=== PATIENT | female | born 1980 | race Caucasian/White ===

== ENCOUNTER → 2017-03-25 | Outpatient (CLI) | payer BC ==
[~2017-03-25] MED LIST: DULO30CA PO
--- NOTE | 2017-03-25 16:28 | Diagnostic Imaging Report ---
PROCEDURE: MRI left joint lower extremity without contrast. TECHNIQUE: Multiplanar, multisequence non contrast-enhanced MRI of the left lower extremity was accomplished. INDICATION: Fall. FINDINGS: There is a bone marrow edema suggestive of a contusion in the medial femoral condyle. The extensor mechanism is intact. The ACL and the PCL are intact. There is no meniscus tear. The MCL and the lateral collateral ligament complex is intact. There is no significant cartilage thinning or focal cartilage defect identified. No Richards's cyst or significant joint effusion. IMPRESSION: There is bone marrow edema along the medial aspect of the medial femoral condyle suggestive of a contusion without a macroscopic fracture component seen. Dictated by: Dictated on workstation # [id number]
== END ==
LOC: RAD 14:53
PROVIDERS: ATTEND Nurse Practitioner
DX: M89.8X6 Other specified disorders of bone, lower leg (principal)
CPT/HCPCS: 73721

== ENCOUNTER → 2017-03-27 | Outpatient (CLI) | payer BC ==
--- NOTE | 2017-03-28 08:57 | Diagnostic Imaging Report ---
Bilateral screening mammogram 2D views with tomosynthesis. The current study was also evaluated with a Computer Aided Detection (CAD) system. INDICATION: Screening. No current complaints stated on the questionnaire. COMPARISON: None. FINDINGS: The breasts are composed of heterogeneously dense parenchyma which may decrease mammographic sensitivity. No mass, architectural distortion, or suspicious calcifications seen. IMPRESSION: Heterogeneously dense breast parenchyma which may decrease mammographic sensitivity. No focal lesion is identified. ACR BI-RADS Category 2: Benign findings. Result letter will be mailed to the patient. Note: At least 10% of breast cancer is not imaged by mammography. Dictated by: Dictated on workstation # [id number]
== END ==
LOC: RAD 12:54
PROVIDERS: ATTEND Obstetrics & Gynecology
DX: Z12.31 Encounter for screening mammogram for malignant neoplasm of breast (principal)
CPT/HCPCS: 77067

== ENCOUNTER → 2017-10-30 | Outpatient (CLI) | payer BC, OTHER ==
--- NOTE | 2017-10-30 09:17 | Diagnostic Imaging Report ---
PROCEDURE: MRI lumbar spine. TECHNIQUE: Multiplanar, multisequence MRI of the lumbar spine was performed without contrast. INDICATION: Back pain There are no previous studies available for comparison. The T2 sagittal images show the vertebral body heights and alignment to be within normal limits. There is desiccation of the disc at L4-5. Furthermore the axial images reveal that there is a focal disc protrusion to the right at this level. The disc compresses the right ventral aspect of the thecal sac resulting in moderate central stenosis. There may also be encroachment of the exiting right nerve root at this level. There is mild narrowing of the neural foramen on the left as well. There is also desiccation and narrowing of the disc at the L5-S1 level. There is a disc bulge centrally at this level but there is no sign of a spinal stenosis. There is mild narrowing of the neural foramen bilaterally The remainder of the lumbar spine is unremarkable for spinal stenosis or nerve root encroachment. There is no abnormal signal arising from the cord or the vertebral bodies to indicate an acute abnormality. There is no sign of a paraspinal mass. IMPRESSION: 1. There is a focal disc protrusion to the right at L4-5. This does result in moderate central stenosis and may well encroach upon the exiting right nerve root at this level. 2. The remainder of the lumbar spine is unremarkable for a high-grade stenosis or any significant neural foraminal narrowing. 3. There is no sign of an acute bony abnormality or cord lesion. Dictated by: Dictated on workstation # [id number]
== END ==
LOC: RAD 07:41
PROVIDERS: ATTEND Nurse Practitioner Family
DX: M48.061 Spinal stenosis, lumbar region without neurogenic claudication (principal); M51.26 Other intervertebral disc displacement, lumbar region
CPT/HCPCS: 72148

== ENCOUNTER 2019-04-21 11:53 | Outpatient (CLI) | payer BC ==
[~2019-04-21] VITALS: Ht 162.6 cm; Wt 68.7 kg
[2019-04-21] MEDS ORDERED: NORG1TAB14 PO (12:04)
[2019-04-21 12:07] VITALS: BP 105/65
[2019-04-21 12:55] LABS: BASOPHILS % (AUTO) 1 % (0-10); EOSINOPHILS # (AUTO) 0.2 10^3/uL (0.0-0.3); EOSINOPHILS % (AUTO) 4 % (0-10); HEMATOCRIT 39 % (35-52); HEMOGLOBIN 12.5 G/DL (11.5-16.0); LYMPHOCYTES # (AUTO) 1.5 X 10^3 (1.0-4.0); LYMPHOCYTES % (AUTO) 30 % (12-44); MEAN CORPUSCULAR HEMOGLOBIN 31 PG (25-34); MEAN CORPUSCULAR HGB CONC 33 G/DL (32-36); MEAN CORPUSCULAR VOLUME 94 FL (80-99); MEAN PLATELET VOLUME 9.9 FL (7.4-10.4); MONOCYTES # (AUTO) 0.3 X 10^3 (0.0-1.0); MONOCYTES % (AUTO) 6 % (0-12); NEUTROPHILS % (AUTO) 60 % (42-75); PLATELET COUNT 314 10^3/uL (130-400); RED CELL DISTRIBUTION WIDTH 12.3 % (10.0-14.5)
== END 2019-04-21 13:55 ==
LOC: PREOP 11:53
PROVIDERS: ATTEND Obstetrics & Gynecology
DX: Z01.812 Encounter for preprocedural laboratory examination (principal); D64.9 Anemia, unspecified; N81.4 Uterovaginal prolapse, unspecified; N39.3 Stress incontinence (female) (male); R19.00 Intra-abdominal and pelvic swelling, mass and lump, unspecified site
CPT/HCPCS: 36415; 85025; 86850; 86900; 86901; 87081

== ENCOUNTER 2019-04-30 10:30 | Day surgery (SDC) | payer BC ==
[~2019-04-30] VITALS: Ht 162.6 cm; Wt 68.7 kg
[2019-04-30] VITALS (16 sets, daily range): BP systolic 85–136; BP diastolic 47–93
[~2019-04-30 10:30] MED LIST changes: +NORG1TAB14 PO
[2019-04-30] MEDS ORDERED: MIDAZOLAM 2 MG/2 ML (VERSED) VIAL ONE (10:59)
[2019-04-30] MEDS ORDERED: LIDOCAINE PF 2% 5 ML (XYLOCAINE) VIAL ONE (10:59)
[2019-04-30] MEDS ORDERED: SEVOFLURANE (ULTANE) 15 ML INHAL SOLN ONE ×7 (10:59→14:36)
[2019-04-30] MEDS ORDERED: NEOSTIGMINE 3 MG/3 ML VIAL ONE (10:59)
[2019-04-30] MEDS ORDERED: ONDANSETRON 4 MG/2 ML (SDV) Z0FRAN ONE ×3 (10:59→15:08)
[2019-04-30] MEDS ORDERED: DEXAMETHASONE 10 MG/ML (DECADRON) 1 ML VIAL ONE (10:59)
[2019-04-30] MEDS ORDERED: ROCURONIUM 10 MG/ML 5 ML SYRINGE IV ONE (10:59)
[2019-04-30] MEDS ORDERED: fentaNYL INJECTION 100 MCG/2 ML AMP ONE ×5 (10:59→15:08)
[2019-04-30] MEDS ORDERED: GLYCOPYRROLATE 0.2 MG/ML (ROBINUL) 2 ML VIAL ONE (10:59)
[2019-04-30] MEDS ORDERED: proPOfol 200 MG/20 ML (DIPRIVAN) VIAL IV ONE (10:59)
[2019-04-30] MEDS ORDERED: ESTRADIOL VAGINAL CREAM 42.5 GM (ESTRACE) VG ONE (11:10)
[2019-04-30] MEDS ORDERED: BUP/EPI 0.25% 1:200,000 (MARCAINE) 10 ML VIAL IJ ONE (11:10)
[2019-04-30] MEDS: LACTATED RINGERS 1,000 ML IV PRN ×3 (11:15→14:43)
[2019-04-30] MEDS ORDERED: SCOPOLAMINE 1.5 MG (TRANSDERM-SCOP) PATCH ONE (11:16)
[2019-04-30] MEDS ORDERED: ceFAZolin INJECTION 1,000 MG ONE (11:16)
[2019-04-30] MEDS ORDERED: FAMOTIDINE 20MG/2ML IV (PEPCID) ONE (11:16)
[2019-04-30] MEDS ORDERED: SCOPOLAMINE 1.5 MG (TRANSDERM-SCOP) PATCH TOP ONE (11:30)
[2019-04-30] MEDS ORDERED: ceFAZolin INJECTION 1,000 MG in WATER (STERILE) FOR INJECTION 10 ML IV ONE (11:30)
[2019-04-30] MEDS ORDERED: ONDANSETRON 4 MG/2 ML (SDV) Z0FRAN IV ONE (11:30)
[2019-04-30] MEDS ORDERED: FAMOTIDINE 20MG/2ML IV (PEPCID) IV ONE (11:30)
--- NOTE | 2019-04-30 12:42 | Progress Note-Pre Operative ---
Pre-Operative Progress Note H&P Reviewed The H&P was reviewed, patient examined and no changes noted. Date Seen by Provider: Apr 30, 2019 Time Seen by Provider: 12:41 Date H&P Reviewed: Apr 30, 2019 Time H&P Reviewed: 12:41 Pre-Operative Diagnosis: Uterovaginal prolapse/stress urinary incontinence/pelvic mass NICOLETTE TOLENTINO MD Apr 30, 2019 12:42
--- NOTE | 2019-04-30 12:43 | Progress Note-Post Operative ---
Post-Operative Progess Note Surgeon (s)/Mechanical Design Drafter (s) Surgeon NICOLETTE TOLENTINO MD Mechanical Design Drafter: An Meza Pre-Operative Diagnosis Uterovaginal prolapse/stress urinary incontinence/pelvic mass Post-Operative Diagnosis Same with pathology pending Procedure & Operative Findings Date of Procedure 04/30/19 Procedure Performed/Findings TL with bilateral salpingectomy and with anterior posterior vaginal repair with enterocele repair and with Dr. Stanley performing a pubovaginal sling and cystoscopy and urethral dilation Anesthesia Type GETA Estimated Blood Loss Estimated blood loss (mL): 200 mL Specimens/Packing Specimens Removed Uterus and fallopian tubes Packing: Kerlix gauze in the vagina NICOLETTE TOLENTINO MD Apr 30, 2019 12:43
[2019-04-30] MEDS ORDERED: WATER (STERILE) FOR INJ 10 ML BTL INJ ONE (12:45)
[2019-04-30] MEDS ORDERED: ONDANSETRON 4 MG/2 ML (SDV) Z0FRAN IVP PRN ×2 (12:45→15:00)
[2019-04-30] MEDS ORDERED: ESTROGENS CONJ IV 25 MG/5 ML (PREMARIN) VIAL IVP ONE (12:45)
[2019-04-30] MEDS ORDERED: MEPERIDINE (DEMEROL) INJ 100 MG/ML IM PRN (12:45)
[2019-04-30] MEDS ORDERED: KETOROLAC 30 MG/ML VIAL IVP SCH (12:45)
[2019-04-30] MEDS ORDERED: BENZOCAINE/MENTHOL (DERMOPLAST) 56 ML CAN TP PRN (12:45)
[2019-04-30] MEDS ORDERED: PROMETHAZINE INJ 25 MG/ML (PHENERGAN) AMP IM PRN (12:45)
[2019-04-30] MEDS ORDERED: IBUP-1780 PO (12:48)
[2019-04-30] MEDS ORDERED: DOCU100C37 PO (12:48)
[2019-04-30] MEDS ORDERED: OXYC1TAB87 PO (12:48)
--- NOTE | 2019-04-30 12:49 | Discharge Instructions ---
Discharge Instructions Discharge Medications New, Converted or Re-Newed RX: RX on Chart Activity & Diet Discharge Diet: No Restrictions Activity as Tolerated: No Orders-Post D/C & Referrals Follow Up Appt: Return to clinic on Friday, May 03, 2019 at 930 a.m. for staple removal Call to make follow up appt. for patient in 4 weeks. Activity: Rest for 24 hours, than as tolerated. Wound Care: May remove Band-Aid tomorrow. Replace as desired. Keep incisions clean and dry. Wash daily with soap and water. Please call in RX to patient pharmacy. Diet: As tolerated-Clear Liquids only if nauseated. Tomorrow, may shower or tub bathe as desired. No driving for 24 hours, no alcoholic beverages for 24 hours, and nothing per vagina (no tampons, douching, or intercoarse) for 8 weeks. Patient to return to the clinic as soon as possible for: Temperature greater than 101F, Severe Pain, Foul discharge from incision or vagina, Excessive Bleeding (more than a period). NICOLETTE TOLENTINO MD Apr 30, 2019 12:49
--- NOTE | 2019-04-30 13:36 | Progress Note-Pre Operative ---
Pre-Operative Progress Note H&P Reviewed The H&P was reviewed, patient examined and no changes noted. Date Seen by Provider: Apr 30, 2019 Time Seen by Provider: 12:00 Date H&P Reviewed: Apr 30, 2019 Time H&P Reviewed: 12:00 Pre-Operative Diagnosis: INCONTINENCE, DUS CARLOS LAW MD Apr 30, 2019 13:36
--- NOTE | 2019-04-30 14:29 | Progress Note-Post Operative ---
Post-Operative Progess Note Surgeon (s)/Customer Service Consultant (s) Surgeon CARLOS LAW MD Customer Service Consultant: Noam TOLENTINO Pre-Operative Diagnosis INCONTINENCE, DUS Post-Operative Diagnosis SAME Procedure & Operative Findings Date of Procedure 04/30/19 Procedure Performed/Findings U.D, PVS, AND CYSTOSCOPY Anesthesia Type GENERAL Estimated Blood Loss Estimated blood loss (mL): NEGLIGIBLE Specimens/Packing Specimens Removed NONE Packing: Kerlix gauze in the vagina CARLOS LAW MD Apr 30, 2019 14:29
[2019-04-30] MEDS ORDERED: KETOROLAC 30 MG/ML VIAL ONE (14:46)
[2019-04-30] MEDS ORDERED: HYDROmorphone 2 MG/ML VIAL (DILAUDID) ONE (14:46)
[2019-04-30] MEDS ORDERED: fentaNYL INJECTION 100 MCG/2 ML AMP IVP ONE (15:00)
[2019-04-30] MEDS ORDERED: MEPERIDINE (DEMEROL) INJ 50 MG/ML IVP ONE (15:00)
[2019-04-30] MEDS ORDERED: MEPERIDINE (DEMEROL) INJ 50 MG/ML ONE ×2 (15:08→16:07)
--- NOTE | 2019-04-30 15:55 | NUR ---
CYRIL BOWEN TRANSFERRED TO ROOM 306 VIA BED ACC BY ALISON COHEN AFTER A TOTAL LAPAROSCOPIC HYSTERECTOMY WITH BILATERAL SALPINGECTOMY, ANTERIOR AND POSTERIOR VAGINAL REPAIR WITH ENTEROCELE REPAIR BY DR. TOLENTINO AND PUBOVAGINAL SLING, URETHRAL DILITAION AND CYSTOSCOPY BY DR. LAW TODAY. CYRIL BOWEN introduced to surroundings, call light, bed controls, phone, TV, temperature control, lights, meal times, smoking policy, visitor policy, side rail policy, bathrooms and showers. Patient Rights given to patient in the handbook
--- NOTE | 2019-04-30 16:00 | NUR ---
ASSESSMENT PERFORMED. PT OUT OF CONTROL AND THRASHING HEAD BACK AND FORTH. PT'S MOTHER AT BEDSIDE. IV PLACED ON PUMP WITH NEW TUBING. CONTINUOUS SPO2 MONITORING AND FREQUENT VS. PATIENT RATES PAIN R/T PACKING AND CATHETER 05/27. STATES WANTING "IT OUT." SPO2 100% ON ROOM AIR. ABD SOFT. LAP SITES X3 D/I. ABD SOFT. VAGINAL PACKING IN PLACE WITH SCANT BLEEDING ON TAIL. RIVERS PATENT TO DD WITH LT CAROL URINE. THIGH-HI SCDS ON BILATERALLY. PT HYPERVENTILATING. ENCOURAGED TO TRY TO BREATHE MORE SLOWLY.
[2019-04-30] MEDS ORDERED: PROMETHAZINE INJ 25 MG/ML (PHENERGAN) AMP ONE (16:07)
[2019-04-30] MEDS ORDERED: MEPERIDINE (DEMEROL) INJ 100 MG/ML ONE (16:07)
--- NOTE | 2019-04-30 16:19 | NUR ---
DEMEROL 100 MG/PHENERGAN 25 MG IM IN RIGHT VG SITE. SITE CLEAR FOR C/O PAIN/PRESSURE FROM PACKING AND RIVERS. STATES SHE FEELS LIKE SHE NEEDS TO PEE. RIVERS DRAINING AND THIS RN MANIPULATING TUBING TO ENSURE DRAINAGE. PT'S MOTHER TEARY EYED AND ASKING HOW LONG BEFORE THE MEDICATION WILL HELP. INFORMED MAYBE 15-20 MINUTES BUT CAN VARY. PT'S MOTHER TIMING MEDICATION.
--- NOTE | 2019-04-30 16:51 | NUR ---
ZOFRAN 12 MG IVP FOR C/O NAUSEA. NO EMESIS. PT HAD BEEN MORE CALM AND BECOMING MORE DROWSY. VSS. SPO2 100%.
--- NOTE | 2019-04-30 17:20 | NUR ---
O2 STARTED AT 2L/M/NC R/T DECREASE IN SPO2. PT SLEEPING SOUNDLY. MOTHER REMAINS AT THE BEDSIDE. RT NOTIFED OF NEED FOR I.S. BUT TO WAIT UNTIL PT AWAKENS LATER BECAUSE OF PAIN CONTROL ISSUES.
--- NOTE | 2019-04-30 17:30 | NUR ---
SPO2 REMAINS AT 100% AND PT STILL SLEEPING. VSS. MOM AT BEDSIDE.
--- NOTE | 2019-04-30 18:30 | NUR ---
PT SLEEPING BUT STARTING TO AROUSE WITH A VISITOR AT BEDSIDE. VSS.
--- NOTE | 2019-04-30 18:50 | NUR ---
PT ATTEMPTING TO EAT NOW. RATES PAIN 3/10. WILL CONTINUE O2 AND LET NEXT SHIFT WEAN. ABD. SOFT. 3 OP SITE DRSG D/I. SCANT VAGINAL BLEEDING AND PACKING TAIL NOTED. HAS SCDS OFF BUT WILL ALLOW THEM OFF UNTIL PT FINISHED WITH MEAL.
--- NOTE | 2019-04-30 19:45 | NUR ---
assessment completed. family at bedside. luo draining, clear yellow urine noted in bag. pt rates pain 3/10. pt denies any needs. will continue to monitor.
--- NOTE | 2019-04-30 21:00 | NUR ---
Pt c/o dry mouth. would like to removed scopolamine patch. scopolamine patch removed.
[2019-04-30] MEDS: KETOROLAC 30 MG/ML VIAL IVP SCH (21:08)
[2019-04-30] MEDS: oxyCODONE/APAP 5/325MG (PERCOCET 5) TABLET PO PRN (21:30)
[2019-04-30] MEDS: D5 LR IV SOLUTION 1,000 ML IV SCH (21:36)
--- NOTE | 2019-05-01 00:50 | OPERATIVE REPORT ---
DATE OF SERVICE: 04/30/2019 PREOPERATIVE DIAGNOSIS: On my part, urinary incontinence and distal urethral stenosis. POSTOPERATIVE DIAGNOSIS: On my part, urinary incontinence and distal urethral stenosis. OPERATION PERFORMED: Urethral dilatation, pubovaginal sling and cystoscopy. SURGEON: Carlos Law MD. SHAREHOLDER: Jose Patino MD ANESTHESIA: General. COMPLICATIONS: None. DESCRIPTION OF PROCEDURE: After Dr. Patino performed the first part of the surgery that he will dictate, I inserted a Vail catheter in the bladder. I went ahead and passed the pubovaginal sling device Solyx on both sides using the described technique. The sling was sitting nicely under the mid urethra with no tension, no twist and passage of a hemostat easily between it and the underlying tissue. I removed the Vail catheter. I performed urethral dilatation with #30 British easily and inserted the cystoscope to confirm the intact orifices, urethra, bladder with no foreign body and presence of the sling under the mid urethra. I left the bladder half full to perform a manual Valsalva maneuver after removing the cystoscope and it was negative. I reinserted the Vail catheter draining clear fluid. Estimated blood loss for my part is negligible. Dr. Patino performed the rest of his surgery that he will dictate. Job ID: [id number] DocumentID: [id number] Dictated Date: 04/30/2019 14:31:25 Science Intern Date: 05/01/2019 00:49:21 Dictated By: CARLOS LAW MD
--- NOTE | 2019-05-01 01:39 | OPERATIVE REPORT ---
DATE OF SERVICE: 04/30/2019 PREOPERATIVE DIAGNOSES: Uterovaginal prolapse, stress urinary incontinence and pelvic mass. POSTOPERATIVE DIAGNOSES: Uterovaginal prolapse, stress urinary incontinence and pelvic mass. OPERATIVE PROCEDURE: Total laparoscopic hysterectomy with bilateral salpingectomies as well as anterior and posterior vaginal repair with enterocele repair and with Dr. Garcia performing a pubovaginal sling and cystoscopy and urethral dilation. OPERATIVE DESCRIPTION: With the patient in the supine position under satisfactory general anesthesia, she was repositioned in dorsal lithotomy position in the [facility] and prepped and draped in the usual fashion for abdominal and vaginal surgery using mechanical assistance. Weighted speculum was placed in the posterior fornix of vagina. Cervix was exposed and grasped anteriorly with single tooth tenaculum. Uterus was sounded to 11 cm with uterine sound. The cervix was then serially dilated with Jermaine dilators to accommodate a Ana Rosa II manipulator, which was placed using a 6 mm x 8 cm uterine probe and a 30 mm colpotomy ring. Sutures of #1 Vicryl were placed at 3 and 9 o'clock position of the cervix to affix the uterus to the manipulator. Vail catheter was placed in the urinary bladder and the patient was brought in low dorsal lithotomy position. An 8 mm incision was made 5 cm superior to the umbilicus. Veress needle was placed through that incision into the abdominal cavity and correct placement was confirmed with the water drop test. The abdomen was insufflated with 2.4 liters of carbon dioxide and the Veress needle was removed and an 8 mm laparoscopic port was placed. Laparoscope was introduced and additional ports of 8 mm were placed 9 cm lateral to the umbilicus about 2 cm above the level of umbilicus. All three port sites were infiltrated with 0.25% Marcaine with epinephrine prior to incision and port placement. The patient was placed in Trendelenburg allowing the bowel to spill out of the pelvis and then the da Mouna column was advanced on the patient and docked. Operative instruments were placed in the right and left lateral ports and I retired to the console for the hysterectomy. At the da Mouna console using a vessel sealer on the right and a bipolar fenestrated grasper on the left, the pelvis was first examined. Both ovaries were normal in appearance as were the fallopian tubes. There was evidence of remote tubal sterilization. Laparoscope was rotated. The appendix was identified. It was a normal vermiform appendix. Laparoscope was brought back to the pelvis. The uterus was somewhat mottled in appearance and was bulky, but there was no overt concerning pathology. The intended procedure was initiated after first identifying both ureters and seemed to peristalse. They were well away from the IP ligament. The right fallopian tube was grasped and elevated. The was clamped, cauterized and divided. This was continued stepwise across the mesosalpinx. There was an area of endometriosis implants on the tissue that was removed with the fallopian tube. Once the mesosalpinx had been divided over to the uteroovarian pedicle then the uteroovarian pedicle itself was clamped, cauterized and divided as was the round ligament, the broad ligament and finally down onto the cardinal ligament. Same procedure was performed on the left, allowing for removal of both fallopian tubes eventually with the uterus. The anterior lower uterine segment peritoneum was exposed and then using a monopolar shear on the right, the peritoneum was divided. The bladder was carefully dissected down off the lower uterine segment and then colpotomy incision was started at 12 o'clock position onto the colpotomy ring. That incision was continued circumferentially until the entire colpotomy ring was exposed. The uterus was now extracted through the vagina with the tubes still attached. The vaginal cuff was closed using 2 V-Loc barbed sutures starting from the first on the left angle and continued to the midportion of the cuff and then reperitonealizing back to the left and then suspending the ovary to the pedicle of the round ligament on the left. The same process was then repeated on the right taking care on both sides to include the pedicles of the uterine arteries to ensure hemostasis. With hemostasis complete and the pelvis closed and the vaginal cuff closed, the procedure was terminated. The operative instruments were removed under direct vision as were the ports. The patient's abdomen was evacuated of the insufflating gas in the process of removing the ports. The skin incisions were stapled and the patient was brought into low dorsal lithotomy position and then repositioned into the dorsal lithotomy position for the anterior and posterior vaginal repairs and other procedures. Weighted speculum was placed in the posterior fornix of the vagina. The anterior vaginal wall was grasped with two Ovidio clamps. Vaginal wall was opened in the midline with Metzenbaum scissors. That opening was continued to approximately 1.5 cm from the urethral meatus and then all the way to the apex of the vagina. The bladder was carefully dissected off the muscularis of the vagina and then the bladder wall and endopelvic fascia were plicated with 2-0 Vicryl sutures, elevating the bladder and lengthening the urethra. At this point, Dr. Garcia assumed care of the patient for placement of a pubovaginal sling, cystoscopy and for urethral dilation, all of those he will dictate. I remained to assist. On completion of Dr. Garcia's portion of the procedure, I resumed care of the patient. He had left the Vail catheter to dependent drainage. At this point, it was draining clear yellow urine. Redundant anterior vaginal muscularis mucosa was removed sharply. Vagina was closed with a running locked suture of 3-0 Vicryl Rapide. Good support was evident. Good hemostasis was achieved. The posterior repair was then by placing Ovidio clamps on the perineum and hymenal ring at 5 and 7 o'clock position and inverted triangle of skin was removed from the perineal body and upright triangle was removed from the posterior vaginal floor. The rectovaginal space was then sharply and dissected bluntly to the apex of the vagina where it was explored for an enterocele; that being a small one, it was plicated with two sutures of 2-0 Vicryl in a pursestring fashion and then the rectovaginal space was obliterated with additional sutures of 2-0 Vicryl and the perineal body was restored with 2-0 Vicryl sutures as well. Redundant posterior vaginal muscularis mucosa was resected and then the vaginal wall was closed with a running locked suture also of 3-0 Vicryl Rapide; that closure was continued past the hymenal ring and back down on the perineal body, then back up subcutaneous to be tied inside the hymenal ring. Good support was evident. Good hemostasis was achieved. The Vail catheter was left to dependent drainage. The vagina was filled with Estrace vaginal cream and a pack of Kerlix gauze was placed. Digital rectal exam confirmed no stricture or stenosis of the rectum and no sutures into or through the rectal mucosa. Sponge and needle counts were correct. Estimated blood loss was around 200 mL. The patient tolerated the procedure well and was now uneventfully awakened from general anesthesia and transferred to the recovery room in stable condition. Job ID: [id number] DocumentID: [id number] Dictated Date: 04/30/2019 14:53:07 Webbing Inspector Date: 05/01/2019 01:39:01 Dictated By: NICOLETTE TOLENTINO MD
[2019-05-01] MEDS: KETOROLAC 30 MG/ML VIAL IVP SCH ×2 (02:38→09:00)
[2019-05-01] MEDS: oxyCODONE/APAP 5/325MG (PERCOCET 5) TABLET PO PRN ×5 (02:39→21:21)
[2019-05-01 04:00] VITALS: BP 106/71
--- NOTE | 2019-05-01 05:49 | NUR ---
vag packing removed, luo dc'd, iv converted to sl. pt tolerated well.
--- NOTE | 2019-05-01 07:51 | Progress Note ---
Standard Progress Note Progress Notes/Assess & Plan Date Seen by a Provider: May 01, 2019 Time Seen by a Provider: 07:49 Progress/Assessment & Plan This patient is without complaint. She is ambulating, tolerating oral intake well and has good pain control. She denies chest pain, denies shortness of breath, denies nausea vomiting. She does report a mild headache that she relates to hunger. She has not voided as of yet. Vital Signs 04/30/19 05/01/19 18:30 04:00 Temp 37.3 Pulse 78 Resp 18 B/P (MAP) 106/71 Pulse Ox 100 O2 Delivery Room Air O2 Flow Rate 2.00 Vital signs are stable. Patient is afebrile. The abdomen is benign. Extremities show no clubbing cyanosis. There is no Homans sign. Assessment and plan postoperative day number 1 doing well. Plan will be for observation until she demonstrates adequate bladder function and then allowed discharge home. If she may manifest urinary retention then we will likely continue observation overnight. Final Diagnosis Uterovaginal prolapse and stress urinary incontinence NICOLETTE TOLENTINO MD May 01, 2019 07:51
--- NOTE | 2019-05-01 08:00 | NUR ---
Pt up to bathroom without difficulty. Voided 150 cc of light blood tinged urine. Hesitancy with voiding. Pt stated she felt like she emptied bladder. Bladder non-distended. No c/o of pain.
--- NOTE | 2019-05-01 08:00 | NUR ---
Dr Patino here to see pt. Pt voided 150cc.
[2019-05-01 08:15] VITALS: BP 121/75
--- NOTE | 2019-05-01 09:15 | NUR ---
Pt up to bathroom by self without difficulty. Voided 100cc of clear urine with hesitancy. Pt stated she did not feel emptied. Post void bladder scan 379cc. Pt refused straight cath at this time.
[2019-05-01] MEDS: DOCUSATE SODIUM 100 MG (COLACE) CAP PO SCH ×2 (09:20→21:21)
[2019-05-01] MEDS: IBUPROFEN 800 MG (MOTRIN) TAB PO SCH ×2 (09:21→15:21)
[2019-05-01] MEDS ORDERED: CATHETER FLUSH 10 ML SYR IVF PRN (10:00)
--- NOTE | 2019-05-01 10:00 | NUR ---
Pt up to bathroom, feeling pressure unable to void. Bladder scan 450cc. 1015 Straight cath 650cc of clear urine. Pressure relieved. Bladder non-distended.
--- NOTE | 2019-05-01 10:30 | NUR ---
Dr Vogel here to see pt. This reported voids Continue to monitor. 150cc & 100cc,post void bladder scan results 450cc, straight cath 650cc. Addendum: 05/01/19 at 1142 by BEREKET CANTU RN Dr Vogel here to see pt. This RN reported voids, 150 cc & 100 cc, post void bladder scan results, straight cath 650 cc of urine returned. Continue to monitor.
--- NOTE | 2019-05-01 10:55 | Progress Note - Urology ---
Progress Note-Urology Progress Notes/Assess & Plan Progress/Assessment & Plan VOIDED BUT PVR 650CC. CONTINENT. OBSERVE TODAY Final Diagnosis INCONTINENCE CARLOS LAW MD May 01, 2019 10:55
[2019-05-01 11:58] VITALS: BP 90/48
--- NOTE | 2019-05-01 12:30 | NUR ---
Pt feeling better. Ambulated in funes and up in kevin after "4 laps" as stated via pt.
--- NOTE | 2019-05-01 13:00 | NUR ---
Pt up to bathroom voided 200cc. Bladder scan post void residual 54cc. Scan via Amaris RMprincipal clerk. Pt comfort.
--- NOTE | 2019-05-01 14:45 | NUR ---
Pt up to bathroom. Voided 100cc. Bladder scan post void residual 244cc. Pt denies discomfort and would like to be discharged.
--- NOTE | 2019-05-01 15:05 | NUR ---
Notified Dr Garcia of pt voiding, bladder scan post void residuals 54cc and 244cc of urine. Pt states she feels better and would like to go home. "O" to discharge pt with instructions.
--- NOTE | 2019-05-01 16:15 | NUR ---
Pt turned field talent qualification specialist light and states very uncomfortable and unable to void. 15FR straight cath with aseptic tech. pt tolerated well. 500cc of clear yellow urine out. Pt states there was some relief. Bladder non distended via palpation. Pt also c/o of gas pain pt has not passed gas rectally since this am. Has been able to burp. Abdomen tender to palpation and firm. Pt has bowels sounds in all quads.
--- NOTE | 2019-05-01 16:30 | NUR ---
Notified Dr Garcia of pt's c/o unable to void,gas pain, and straight cath 500cc. "o" Simethicone and will keep pt overnight.
--- NOTE | 2019-05-01 16:35 | NUR ---
Pt ambulating in hallway.
[2019-05-01] MEDS: SIMETHICONE 80 MG (MYLICON) CHEW PO PRN (17:00)
--- NOTE | 2019-05-01 17:00 | NUR ---
Pt continues to c/o of gas pain. Pt refused percocet at this time. Pt states she feels constipated. Pt had regular BM yesterday morning. No nausea. no vomiting.
[2019-05-01 17:10] VITALS: BP 106/65
--- NOTE | 2019-05-01 17:15 | NUR ---
Notified Dr Patino of pt c/o, gas pain,unable to void, refused second percocet tab and that I have notified Dr Garcia. "O" LR 150MLS/HR, 1mg stadol IV once, call him with further c/o pain or concerns.
[2019-05-01] MEDS ORDERED: BUTORPHANOL INJ 2 MG/ML (STADOL) VIAL IV ONE (17:30)
[2019-05-01] MEDS ORDERED: BUTORPHANOL INJ 2 MG/ML (STADOL) VIAL ONE (17:37)
[2019-05-01] MEDS ORDERED: LACTATED RINGERS 1,000 ML IV ONE (17:38)
[2019-05-01] MEDS: LACTATED RINGERS 1,000 ML IV SCH (17:59)
--- NOTE | 2019-05-01 17:59 | NUR ---
SL in rt forearm flushed with NS. Flushes without difficulty. Primary pump tubing and extension connected. LR infusing @ 150MLS/HR with difficulty. See MAR
[2019-05-01] MEDS: D5 LR IV SOLUTION 1,000 ML IV SCH ×2 (18:04→18:05)
--- NOTE | 2019-05-01 19:03 | NUR ---
Dermaplast spray to rectum for c/o pressure. Pt resting on lt side. Denies urge to void. Pt stated stadol relieved her pain.
--- NOTE | 2019-05-01 19:52 | NUR ---
pt put propellant charge zone assembler light, states she has the urge to void. pt placed on toilet. ice pack given to place on perineum to assist with voiding. Pt still unable to void. Pt would like to try and take a shower to see if that will help. iv converted to sl and secured. pt assisted to shower. family at side.
--- NOTE | 2019-05-01 20:08 | NUR ---
notified of pt's pain and unable to void. order to continue straight cath received.
[2019-05-01 20:30] VITALS: BP 112/69
--- NOTE | 2019-05-01 20:30 | NUR ---
pt c/o abdominal pain that starts under ribs and radiates to her rectum. c/o urge to void. nausea on and off. pt eating sandwich. no vomiting noted at this time.
--- NOTE | 2019-05-01 20:40 | NUR ---
pt assisted back to bathroom. unable to void. pt assisted back to bed. pt crying in pain. straight cath performed. 500cc of clear yellow urine obtained. pericare completed.
--- NOTE | 2019-05-01 20:55 | NUR ---
mother very upset about patient's well being. notified of pt's complaint and pain. updated on patient's status. new orders received.
[2019-05-01] MEDS ORDERED: ALPRAZolam 1 MG (XANAX) TAB ONE (21:09)
[2019-05-01] MEDS ORDERED: ALPRAZolam 1 MG (XANAX) TAB PO ONE (21:15)
[2019-05-01 21:57] LABS: BASOPHILS % (AUTO) 0 % (0-10); EOSINOPHILS % (AUTO) 0 % (0-10); HEMATOCRIT 32 % (35-52); HEMOGLOBIN 10.4 G/DL (11.5-16.0); LYMPHOCYTES # (AUTO) 0.8 X 10^3 (1.0-4.0); LYMPHOCYTES % (AUTO) 6 % (12-44); MEAN CORPUSCULAR HEMOGLOBIN 32 PG (25-34); MEAN CORPUSCULAR HGB CONC 33 G/DL (32-36); MEAN CORPUSCULAR VOLUME 96 FL (80-99); MEAN PLATELET VOLUME 10.1 FL (7.4-10.4); MONOCYTES # (AUTO) 0.5 X 10^3 (0.0-1.0); MONOCYTES % (AUTO) 4 % (0-12); NEUTROPHILS # (AUTO) 11.9 X 10^3 (1.8-7.8); NEUTROPHILS % (AUTO) 90 % (42-75); PLATELET COUNT 209 10^3/uL (130-400); RED CELL DISTRIBUTION WIDTH 11.9 % (10.0-14.5); WHITE BLOOD COUNT 13.2 10^3/uL (4.3-11.0)
--- NOTE | 2019-05-01 22:08 | NUR ---
straight cath performed. 200 cc of clear yellow urine obtained and sent to lab. pt states pain is the same.
[2019-05-01 22:11] LABS: ALANINE AMINOTRANSFERASE 8 U/L (0-55); ALBUMIN 3.2 GM/DL (3.2-4.5); ALKALINE PHOSPHATASE 45 U/L (40-136); BAND NEUTROPHILS 5 %; BASOPHILS % (MANUAL) 0 %; BILIRUBIN,TOTAL 0.8 MG/DL (0.1-1.0); BUN/CREATININE RATIO 9; CALCIUM 7.9 MG/DL (8.5-10.1); CARBON DIOXIDE 23 MMOL/L (21-32); CHLORIDE 108 MMOL/L (98-107); CREATININE SERUM 0.69 MG/DL (0.60-1.30); EOSINOPHILS % (MANUAL) 0 %; GFR ESTIMATED > 60; GLUCOSE 124 MG/DL (70-105); LYMPHOCYTES % (MANUAL) 2 %; MONOCYTES % (MANUAL) 5 %; NEUTROPHILS % (MANUAL) 88 %; POTASSIUM 3.8 MMOL/L (3.6-5.0); RBC MORPH NORMAL; SODIUM 138 MMOL/L (135-145); TOTAL PROTEIN 5.6 GM/DL (6.4-8.2)
[2019-05-01 22:13] LABS: BILIRUBIN,URINE NEGATIVE (NEGATIVE); CLARITY,URINE CLEAR; COLOR,URINE YELLOW; GLUCOSE, URINE (UA) NEGATIVE (NEGATIVE); KETONES,URINE NEGATIVE (NEGATIVE); LEUKOCYTE ESTERASE ,URINE 1+ (NEGATIVE); NITRITE,URINE NEGATIVE (NEGATIVE); PH,URINE 8 (5-9); PROTEIN,URINE NEGATIVE (NEGATIVE); UROBILINOGEN,URINE NORMAL (NORMAL)
--- NOTE | 2019-05-01 22:15 | NUR ---
called with update. new orders received.
[2019-05-01 22:19] LABS: BACTERIA,URINE NEGATIVE /HPF; SQUAMOUS EPITHELIAL CELL,UR RARE /HPF; WBC,URINE 0-2 /HPF
--- NOTE | 2019-05-01 22:36 | NUR ---
pt taken by aquiles'kannan to c/t
[2019-05-01] MEDS ORDERED: IOHEXOL 350 MG/ML 100 ML (OMNIPAQUE 350) VIAL IV ONE (23:00)
[2019-05-01] MEDS ORDERED: HOLD METFORMIN - RECEIVED CONTRAST 20 ML VIAL IV SCH (23:00)
[2019-05-01] MEDS ORDERED: NS 100 ML (IVPB) BAG IV ONE (23:00)
--- NOTE | 2019-05-01 23:00 | NUR ---
pt returned from ct
--- NOTE | 2019-05-01 23:10 | NUR ---
pt up to the bathroom. positive void 150cc. pt reports pain is better 4/10
--- NOTE | 2019-05-01 23:15 | NUR ---
ice pack placed on perineum per patient's request.
--- NOTE | 2019-05-01 23:38 | NUR ---
CT results called to . no new orders at this time.
--- NOTE | 2019-05-01 23:56 | NUR ---
plan of care discuss with mother/patient. no questions at this time. will continue to monitor.
[2019-05-02 00:06] VITALS: BP 104/66
--- NOTE | 2019-05-02 02:12 | NUR ---
pt resting in bed with eyes closed. mother at bedside. pt denies any needs at this time.
[2019-05-02] MEDS: LACTATED RINGERS 1,000 ML IV SCH (02:30)
[2019-05-02] MEDS: IBUPROFEN 800 MG (MOTRIN) TAB PO SCH ×2 (03:12→08:37)
[2019-05-02] MEDS: oxyCODONE/APAP 5/325MG (PERCOCET 5) TABLET PO PRN (03:13)
[2019-05-02 03:15] VITALS: BP 87/51
--- NOTE | 2019-05-02 05:20 | NUR ---
pt assisted to the bathroom. positive void 250cc of clear yellow urine. small amount of urine noted in toilet. pt states she feels "empty of urine" denies any pain at this time. will continue to monitor.
--- NOTE | 2019-05-02 05:59 | NUR ---
called to unit. Update given on patient. New orders received.
--- NOTE | 2019-05-02 07:49 | Progress Note ---
Standard Progress Note Progress Notes/Assess & Plan Date Seen by a Provider: May 02, 2019 Time Seen by a Provider: 07:47 Progress/Assessment & Plan This patient is without complaint. She is ambulating, tolerating oral intake well and has good pain control. She denies chest pain, denies shortness of breath, denies nausea vomiting. She does report a mild headache that she relates to hunger. She has not voided as of yet. Vital Signs 04/30/19 05/01/19 18:30 04:00 Temp 37.3 Pulse 78 Resp 18 B/P (MAP) 106/71 Pulse Ox 100 O2 Delivery Room Air O2 Flow Rate 2.00 Vital signs are stable. Patient is afebrile. The abdomen is benign. Extremities show no clubbing cyanosis. There is no Homans sign. Assessment and plan postoperative day number 1 doing well. Plan will be for observation until she demonstrates adequate bladder function and then allowed discharge home. If she may manifest urinary retention then we will likely continue observation overnight. May 02, 2019 Patient is now without complaint. She had an episode yesterday where she had increasing abdominal and pelvic pain. She initially was unable to void but then began to void adequately. Then had another episode where she has urinary retention. With the severe pain in the urinary retention a CT was performed with no specific abnormal findings. There was some fluid in the pelvis but that would not be unusual after her surgery. White blood cell count with minimally elevated. After the CT was performed in patient's symptoms essentially res olved. She is now eating and drinking she is ambulating and voiding and has good pain control and is requesting discharge home. Vital Signs Date Time Temp Pulse Resp B/P (MAP) Pulse Ox O2 Delivery O2 Flow Rate FiO2 05/02/19 06:25 Nasal Cannula 2.00 05/02/19 03:15 37.3 83 18 87/51 98 Room Air 05/02/19 00:06 37.8 90 18 104/66 98 Room Air 05/01/19 22:09 Room Air 05/01/19 20:30 37.5 91 18 112/69 100 Room Air 05/01/19 17:10 37.7 88 18 106/65 100 Room Air 05/01/19 11:58 37.7 78 16 90/48 97 Room Air 05/01/19 11:07 Room Air 05/01/19 08:15 37.7 74 18 121/75 100 Room Air I & O 05/02/19 07:00 Intake Total 1500 ml Output Total 2600 ml Balance -1100 ml Vital signs are stable. Patient is afebrile. The abdomen is benign. The surgical incision dressings are clean and dry. Bowel sounds are present in all 4 quadrants. Extremities show no clubbing or cyanosis. There is no Homans sign. Assessment and plan postoperative day number 2 doing well. She is voiding well now her episode of severe pain has resolved she is requesting discharge home and plan is for discharge home with follow-up in clinic Final Diagnosis Uterovaginal prolapse and stress urinary incontinence NICOLETTE TOLENTINO MD May 02, 2019 07:49
--- NOTE | 2019-05-02 07:52 | Discharge Instructions ---
Discharge Instructions Orders-Post D/C & Referrals Follow Up Appt: Return to clinic on Friday, May 07, 2019 at 930 a.m. for incision check Call to make follow up appt. for patient in 4 weeks. Activity: Rest for 24 hours, than as tolerated. Wound Care: Please remove mansi and apply Steri-Strips prior to discharge May remove Band-Aid tomorrow. Replace as desired. Keep incisions clean and dry. Wash daily with soap and water. Please call in RX to patient pharmacy. Diet: As tolerated-Clear Liquids only if nauseated. Tomorrow, may shower or tub bathe as desired. No driving for 24 hours, no alcoholic beverages for 24 hours, and nothing per vagina (no tampons, douching, or intercoarse) for 2 weeks. Patient to return to the clinic as soon as possible for: Temperature greater than 101F, Severe Pain, Foul discharge from incision or vagina, Excessive Bleeding (more than a period). NICOLETTE TOLENTINO MD May 02, 2019 07:52
[2019-05-02 08:00] VITALS: BP 82/48
--- NOTE | 2019-05-02 08:00 | NUR ---
Dr Patino here for rounds. Discussed plan of care with pt and mother, results of labs and scan, and possible discharge today if continues to do well.
[2019-05-02] MEDS: DOCUSATE SODIUM 100 MG (COLACE) CAP PO SCH (08:05)
[2019-05-02] MEDS: SIMETHICONE 80 MG (MYLICON) CHEW PO PRN (08:06)
--- NOTE | 2019-05-02 08:46 | Diagnostic Imaging Report ---
PROCEDURE: CT abdomen and pelvis with contrast. TECHNIQUE: Multiple contiguous axial images were obtained through the abdomen and pelvis after administration of intravenous contrast. Auto Exposure Controls were utilized during the CT exam to meet ALARA standards for radiation dose reduction. INDICATION: Abdominal pain. Partial hysterectomy, bladder sling and vaginal wall repair 2 days ago. COMPARISON: None. FINDINGS: Hysterectomy. Fluid collection demonstrating mixed density in the pelvis located between the rectum and bladder which demonstrates thin peripheral enhancement. Tiny locules of free intraperitoneal air scattered throughout the abdomen should be postoperative. There is no locules of gas within the pelvic fluid collection. The lung bases are clear. The liver, gallbladder, pancreas, spleen, adrenals, kidneys and collecting systems are negative. The appendix is not identified and may be surgically absent. No evidence of bowel obstruction. The cecum and proximal colon are moderately distended with stool. No lymphadenopathy. Osseous structures are intact. IMPRESSION: Mixed density fluid collection with thin peripheral enhancement in the hysterectomy operative bed is most suspicious for hematoma. However, developing abscess cannot be excluded. Recommend short-term followup. Small amount of scattered free intraperitoneal air should be postoperative. No evidence of bowel obstruction. Dictated by: Dictated on workstation # [id number]
--- NOTE | 2019-05-02 08:55 | NUR ---
Dr Garcia present for rounds - gave post op instructions. Will do post void residue and notify physician of amount and plan for discharge. Questions answered.
--- NOTE | 2019-05-02 09:15 | Progress Note - Urology ---
Progress Note-Urology Progress Notes/Assess & Plan Progress/Assessment & Plan DOING AND FEELING BETTER.VOIDING BETTER. DRY. EMPTIES BETTER. INSTRUCTIONS GIVEN. CHECK PVR LATER ON TO DECIDE ON FOLLOW UP APPOINTMENT Final Diagnosis INCONTINENCE CARLOS LAW MD May 02, 2019 09:15
--- NOTE | 2019-05-02 10:20 | NUR ---
Voided 250ml with 25ml post void residual per bladder scanner. Pt having gas pains but now has began to pass gas. Stapled dc'd and steri strips applied.
[2019-05-02 10:25] VITALS: BP 101/68
--- NOTE | 2019-05-02 10:50 | NUR ---
Dr Garcia notified of post void residual. Discharge planned. 1200 Home instructions given and pt verbalized understanding. Ambulated to exit - accompanied by this RN and pt's mother.
--- NOTE | 2019-05-02 11:06 | Anesthesia-General Post-Op ---
General Patient Condition Mental Status/LOC: Same as Preop Cardiovascular: Satisfactory Nausea/Vomiting: Absent Respiratory: Satisfactory Pain: Controlled Complications: Absent Post Op Complications Complications None Follow Up Care/Instructions Patient Instructions None needed. Anesthesia/Patient Condition Patient Condition Patient is doing well, no complaints, stable vital signs, no apparent adverse anesthesia problems. No complications reported per nursing. D/C home per [facility] [place] [facility] [place] Criteria: Yes RAJIV GARCIA CRNA May 02, 2019 11:06
[2019-05-02 12:00] VITALS: BP 101/68
== END 2019-05-02 12:00 | disposition home or self-care (01) ==
LOC: SDC 10:30 → WS 15:54 → SDC 05-02 12:00
PROVIDERS: ATTEND Obstetrics & Gynecology
DX: N81.4 Uterovaginal prolapse, unspecified (principal); R19.00 Intra-abdominal and pelvic swelling, mass and lump, unspecified site; N39.3 Stress incontinence (female) (male); N35.92 Unspecified urethral stricture, female; F43.10 Post-traumatic stress disorder, unspecified; F32.9 Major depressive disorder, single episode, unspecified; F41.9 Anxiety disorder, unspecified; Z88.5 Allergy status to narcotic agent; Z98.51 Tubal ligation status
CPT/HCPCS: 74177; 86850; 86900; 86901; 88307; 94664

== ENCOUNTER 2021-02-18 09:05 | Emergency (ER) | payer BC ==
[~2021-02-18] VITALS: Ht 162 cm; Wt 72.0 kg
[~2021-02-18 09:05] MED LIST changes: +DOCU100C37 PO; +IBUP-1780 PO; +OXYC1TAB87 PO
[2021-02-18 09:31] LABS: BILIRUBIN,URINE NEGATIVE (NEGATIVE); CLARITY,URINE CLEAR; COLOR,URINE YELLOW; GLUCOSE, URINE (UA) NEGATIVE (NEGATIVE); KETONES,URINE NEGATIVE (NEGATIVE); LEUKOCYTE ESTERASE ,URINE NEGATIVE (NEGATIVE); NITRITE,URINE NEGATIVE (NEGATIVE); PROTEIN,URINE NEGATIVE (NEGATIVE)
[2021-02-18 09:38] LABS: BACTERIA,URINE MODERATE /HPF
[2021-02-18] MEDS ORDERED: ONDANSETRON 4 MG/2 ML (SDV) Z0FRAN IVP ONE (09:45)
[2021-02-18] MEDS ORDERED: LACTATED RINGERS 1,000 ML IV ONE (09:45)
[2021-02-18] MEDS ORDERED: fentaNYL INJ 100 MCG/2 ML AMP IVP ONE (09:45)
[2021-02-18] MEDS ORDERED: KETOROLAC 30 MG/ML VIAL IVP ONE (09:45)
[2021-02-18 09:49] LABS: BASOPHILS # (AUTO) 0.1 10^3/uL (0.0-0.1); BASOPHILS % (AUTO) 1 % (0-10); EOSINOPHILS # (AUTO) 0.2 10^3/uL (0.0-0.3); EOSINOPHILS % (AUTO) 2 % (0-10); HEMATOCRIT 40 % (35-52); LYMPHOCYTES # (AUTO) 4.6 10^3/uL (1.0-4.0); LYMPHOCYTES % (AUTO) 45 % (12-44); MEAN CORPUSCULAR HEMOGLOBIN 31 pg (25-34); MEAN CORPUSCULAR HGB CONC 33 g/dL (32-36); MEAN CORPUSCULAR VOLUME 95 fL (80-99); MEAN PLATELET VOLUME 9.8 fL (9.0-12.2); MONOCYTES # (AUTO) 0.6 10^3/uL (0.0-1.0); MONOCYTES % (AUTO) 6 % (0-12); NEUTROPHILS # (AUTO) 4.7 10^3/uL (1.8-7.8); NEUTROPHILS % (AUTO) 46 % (42-75); PLATELET COUNT 300 10^3/uL (130-400); WHITE BLOOD COUNT 10.2 10^3/uL (4.3-11.0)
[2021-02-18 09:52] LABS: ALBUMIN 4.3 GM/DL (3.2-4.5); CHLORIDE 105 MMOL/L (98-107); POTASSIUM 3.5 MMOL/L (3.6-5.0); SODIUM 141 MMOL/L (135-145)
[2021-02-18 09:53] LABS: CALCIUM 9.2 MG/DL (8.5-10.1)
[2021-02-18 09:54] LABS: GLUCOSE 101 MG/DL (70-105)
[2021-02-18 09:55] LABS: CARBON DIOXIDE 22 MMOL/L (21-32)
[2021-02-18 09:56] LABS: BILIRUBIN,TOTAL 0.7 MG/DL (0.1-1.0)
[2021-02-18 09:58] LABS: ALKALINE PHOSPHATASE 78 U/L (40-136); CREATININE SERUM 0.83 MG/DL (0.60-1.30); GFR ESTIMATED > 60
[2021-02-18 09:59] LABS: BUN/CREATININE RATIO 17
[2021-02-18 10:01] LABS: ALANINE AMINOTRANSFERASE 16 U/L (0-55); LIPASE 50 U/L (8-78)
--- NOTE | 2021-02-18 10:56 | Diagnostic Imaging Report ---
PROCEDURE: CT urinary tract, rule out kidney stone. TECHNIQUE: Multiple contiguous axial images were obtained through the abdomen and pelvis without the use of intravenous contrast. Auto Exposure Controls were utilized during the CT exam to meet ALARA standards for radiation dose reduction. INDICATION: Left lower quadrant pain The previous CT abdomen/pelvis exam of 05/01/2019 suggested postoperative hematoma involving the pelvis. There is no acute abnormality of the kidneys. On this study however there is now obstruction of the left collecting system as the left ureter and left renal pelvis are dilated. It is difficult to identify an obstructive calculus although there is a tiny 1 mm calculus along the path of the distal left ureter (image 101 of 123). There is no solid obstructive mass identified in the region of the distal left ureter. The urinary bladder itself is not well distended and difficult to assess. There is no acute abnormality of the abdomen and pelvis noted otherwise. The lung bases are clear. The bone windows are unremarkable for a fracture or for a destructive process. IMPRESSION: 1. There does appear to be obstruction of the left collecting system as both the left ureter and left renal pelvis are dilated. There may be a minute nonobstructive calculus in the distal left ureter as well. Clinical follow-up is recommended. 2. There is no acute abnormality in the abdomen and pelvis noted otherwise. Dictated by: Dictated on workstation # [id number]
[2021-02-18] MEDS ORDERED: HYOSCYAMINE 0.125 MG (LEVSIN) TAB PO ONE (11:45)
--- NOTE | 2021-02-18 12:01 | ED Abdominal Pain ---
General Chief Complaint: Abdominal/GI Problems Stated Complaint: TRIED TO URINATE/SUDDEN ABD PAIN Nursing Triage Note: PT REPORTS TO ED FOR LLQ PAIN THAT HAPPENED WHILE TRYING TO URINATE. PT DESCRIBES PAIN A TEARING FEELING. PT DENIES INJURY. PT AMB. TO ROOM 04 GUARDING LLQ. Source of Information: Patient Exam Limitations: No Limitations History of Present Illness Date Seen by Provider: Feb 18, 2021 Time Seen by Provider: 09:12 Initial Comments This 40-year-old woman presents to the emergency room with complaints of severe left flank pain and nausea. She has been having some symptoms over the past week or so which include a sensation of inability to completely void and persistent urinary urgency. She has not noted any blood in her urine. She has been treated with antibiotics and steroids with consideration for urethritis and possible urinary tract infection. She reports her urinalysis in the clinic was normal. She is afebrile. She is in distress on initial assessment. Allergies and Home Medications Allergies Coded Allergies: morphine (Verified Allergy, Mild, N/V, 04/21/19) Home Medications Ciprofloxacin HCl 500 Mg Tablet, 500 MG PO BID Prescribed by: MICAELA ARTEAGA on 02/18/21 1206 Docusate Sodium 100 Mg Capsule, 100 MG PO BID Prescribed by: NICOLETTE BONE on 04/30/19 1248 Hyoscyamine Sulfate 0.125 Mg Tab.subl, 1-2 TAB SL Q4H PRN for CRAMPS Prescribed by: MICAELA ARTEAGA on 02/18/21 1206 Ibuprofen 800 Mg Tablet, 800 MG PO Q6HR Prescribed by: NICOLETTE BONE on 04/30/19 1248 Norgestimate-Ethinyl Estradiol 1 Each Tablet, 1 EACH PO DAILY, (Reported) Ondansetron 4 Mg Tab.rapdis, 4 MG SL Q4H PRN for NAUSEA/VOMITING Prescribed by: MICAELA ARTEAGA on 02/18/21 1206 Oxycodone HCl/Acetaminophen 1 Each Tablet, 1 TAB PO Q4H PRN for PAIN-MODERATE Prescribed by: INCOLETTE BONE on 04/30/19 1248 Oxycodone HCl/Acetaminophen 1 Each Tablet, 1-2 TAB PO Q4H PRN for PAIN-MODERATE (5-7) Prescribed by: MICAELA ARTEAGA on 02/18/21 1207 Tamsulosin HCl 0.4 Mg Cap, 0.4 MG PO DAILY Prescribed by: MICAELA ARTEAGA on 02/18/21 1239 Patient Home Medication List Home Medication List Reviewed: Yes Review of Systems Review of Systems Constitutional: no symptoms reported EENTM: No Symptoms Reported Respiratory: No Symptoms Reported Cardiovascular: No Symptoms Reported Gastrointestinal: See HPI Genitourinary: See HPI Musculoskeletal: no symptoms reported Skin: no symptoms reported Psychiatric/Neurological: No Symptoms Reported Endocrine: No Symptoms Reported Hematologic/Lymphatic: No Symptoms Reported Past [place]-Vcvhtt-Kmmrtk Hx Patient Social History Tobacco Use?: No Smoking Status: Never a Smoker Substance use?: No Alcohol type: Wine Alcohol Frequency: Rarely Pt feels they are or have been: No Seasonal Allergies Seasonal Allergies: No Past Medical History Surgeries: Yes (BACK X2, CS X2) Bladder Surgery (Ladder sling), Hysterectomy Respiratory: No Currently Using CPAP: No Currently Using BIPAP: No Cardiac: No Neurological: No Reproductive Disorders: No Female Reproductive Disorders: Menstrual Problems Sexually Transmitted Disease: No HIV/AIDS: No Genitourinary: No Gastrointestinal: No Musculoskeletal: Yes (MILD) Chronic Back Pain Endocrine: No HEENT: No Loss of Vision: Denies Hearing Impairment: Denies Cancer: No Psychosocial: Yes Anxiety, PTSD, Depression Integumentary: No Blood Disorders: No Adverse Reaction/Blood Tranf: No (N/A) Family Medical History No Pertinent Family Hx Physical Exam Vital Signs Vital Signs - First Documented 02/18/21 02/18/21 09:11 12:17 Temp 36.9 Pulse 73 Resp 20 B/P (MAP) 119/103 (108) Pulse Ox 98 O2 Delivery Room Air O2 Flow Rate 100.00 Capillary Refill : Height/Weight/BMI Height: 5'4.00" Weight: 151lbs. 6.0oz. 68.968398iz; 27.00 BMI Method: General Appearance: WD/WN, moderate distress HEENT: PERRL/EOMI, pharynx normal Neck: normal inspection Respiratory: lungs clear, normal breath sounds, no respiratory distress, no accessory muscle use Cardiovascular: regular rate, rhythm, no edema, no murmur Gastrointestinal: normal bowel sounds, soft, tenderness (Left lower quadrant) Extremities: normal inspection, no pedal edema Back: normal inspection Neurologic/Psychiatric: appetizer packer II-XII nml as tested, no motor/sensory deficits, alert, normal mood/affect, oriented x 3 Skin: normal color, warm/dry Progress/Results/Core Measures Results/Orders Lab Results Laboratory Tests Test 02/18/21 09:16 02/18/21 09:25 Range/Units White Blood Count 10.2 4.3-11.0 10^3/uL Red Blood Count 4.16 3.80-5.11 10^6/uL Hemoglobin 13.0 11.5-16.0 g/dL Hematocrit 40 35-52 % Mean Corpuscular Volume 95 80-99 fL Mean Corpuscular Hemoglobin 31 25-34 pg Mean Corpuscular Hemoglobin Concent 33 32-36 g/dL Red Cell Distribution Width 11.9 10.0-14.5 % Platelet Count 300 130-400 10^3/uL Mean Platelet Volume 9.8 9.0-12.2 fL Immature Granulocyte % (Auto) 0 % Neutrophils (%) (Auto) 46 42-75 % Lymphocytes (%) (Auto) 45 H 12-44 % Monocytes (%) (Auto) 6 0-12 % Eosinophils (%) (Auto) 2 0-10 % Basophils (%) (Auto) 1 0-10 % Neutrophils # (Auto) 4.7 1.8-7.8 10^3/uL Lymphocytes # (Auto) 4.6 H 1.0-4.0 10^3/uL Monocytes # (Auto) 0.6 0.0-1.0 10^3/uL Eosinophils # (Auto) 0.2 0.0-0.3 10^3/uL Basophils # (Auto) 0.1 0.0-0.1 10^3/uL Immature Granulocyte # (Auto) 0.0 0.0-0.1 10^3/uL Sodium Level 141 135-145 MMOL/L Potassium Level 3.5 L 3.6-5.0 MMOL/L Chloride Level 105 98-107 MMOL/L Carbon Dioxide Level 22 21-32 MMOL/L Anion Gap 14 5-14 MMOL/L Blood Urea Nitrogen 14 7-18 MG/DL Creatinine 0.83 0.60-1.30 MG/DL Estimat Glomerular Filtration Rate > 60 BUN/Creatinine Ratio 17 Glucose Level 101 70-105 MG/DL Calcium Level 9.2 8.5-10.1 MG/DL Corrected Calcium 9.0 8.5-10.1 MG/DL Total Bilirubin 0.7 0.1-1.0 MG/DL Aspartate Amino Transf (AST/SGOT) 19 5-34 U/L Alanine Aminotransferase (ALT/SGPT) 16 0-55 U/L Alkaline Phosphatase 78 40-136 U/L Total Protein 7.0 6.4-8.2 GM/DL Albumin 4.3 3.2-4.5 GM/DL Lipase 50 8-78 U/L Serum Test, Qualitative NEGATIVE NEGATIVE Urine Color YELLOW Urine Clarity CLEAR Urine pH 6.0 5-9 Urine Specific [place] >=1.030 1.016-1.022 Urine Protein NEGATIVE NEGATIVE Urine Glucose (UA) NEGATIVE NEGATIVE Urine Ketones NEGATIVE NEGATIVE Urine Nitrite NEGATIVE NEGATIVE Urine Bilirubin NEGATIVE NEGATIVE Urine Urobilinogen 0.2 < = 1.0 MG/DL Urine Leukocyte Esterase NEGATIVE NEGATIVE Urine RBC (Auto) 2+ H NEGATIVE Urine RBC 10-25 H /HPF Urine WBC NONE /HPF Urine Squamous Epithelial Cells 5-10 /HPF Urine Crystals NONE /LPF Urine Bacteria MODERATE H /HPF Urine Casts NONE /LPF Urine Mucus NEGATIVE /LPF Urine Culture Indicated NO My Orders Orders - MICAELA BEJARANO MD Ua Culture If Indicated (02/18/21 09:12) Ketorolac Injection (Toradol Injection) (02/18/21 09:45) Fentanyl Inj (Sublimaze Injection) (02/18/21 09:45) Ondansetron Injection (Zofran Injectio (02/18/21 09:45) Cbc With Automated Diff (02/18/21 09:41) Comprehensive Metabolic Panel (02/18/21 09:41) Hcg,Qualitative Serum (02/18/21 09:41) Lipase (02/18/21 09:41) Ed Iv/Invasive Line Start (02/18/21 09:41) Lactated Ringers (Lr 1000 Ml Iv Solution (02/18/21 09:45) Ct Abd/Pelvis Wo(Kidney Stone) (02/18/21 10:19) Hyoscyamine Sl Tablet (Levsin Sl Tablet) (02/18/21 11:45) Medications Given in ED Current Medications Medications Dose Ordered Sig/Tho Route Start Time Stop Time Status Last Admin Dose Admin Fentanyl Citrate 50 mcg ONCE ONCE IVP 02/18/21 09:45 02/18/21 09:46 DC 02/18/21 09:48 50 MCG Hyoscyamine Sulfate 0.25 mg ONCE ONCE PO 02/18/21 11:45 02/18/21 11:46 DC 02/18/21 11:42 0.25 MG Ketorolac Tromethamine 30 mg ONCE ONCE IVP 02/18/21 09:45 02/18/21 09:46 DC 02/18/21 09:46 30 MG Lactated Ringer's 1,000 ml @ 0 mls/hr Q0M ONCE IV 02/18/21 09:45 02/18/21 09:46 DC 02/18/21 09:54 1,000 MLS/HR Ondansetron HCl 8 mg ONCE ONCE IVP 02/18/21 09:45 02/18/21 09:46 DC 02/18/21 09:48 8 MG Vital Signs/I&O 02/18/21 02/18/21 09:11 12:17 Temp 36.9 36.9 Pulse 73 71 Resp 20 18 B/P (MAP) 119/103 (108) 114/81 Pulse Ox 98 O2 Delivery Room Air Room Air O2 Flow Rate 100.00 Blood Pressure Mean: 108 Progress Progress Note : Progress Note Patient was treated with fentanyl, Zofran, and Toradol with good results. CT was obtained and demonstrated a tiny stone in the left distal ureter. Ladder was collapsed on CT ruling out urinary obstruction of the bladder. Levsin was given for bladder spasms which did eventually improve her discomfort. I spoke with Dr. Law after patient's departure from the ER. He recommended adding Flomax. I notified the patient and added this to her prescriptions. KUB was not obtained as the CT manager business intelligence film was of high quality. Diagnostic Imaging Diagonstic Imaging: CT Plain Films/CT/US/NM/MRI: abdomen, pelvis Comments CT abdomen and pelvis viewed by me and report reviewed. See report below: NAME: CYRIL BOWEN [facility] REC#: [id number] PT STATUS: REG ER : 1980 PHYSICIAN: MICAELA BEJARANO MD ADMIT DATE: 02/18/21/ER Signed Date of Exam:02/18/21 CT ABD/PELVIS WO(KIDNEY STONE) PROCEDURE: CT urinary tract, rule out kidney stone. TECHNIQUE: Multiple contiguous axial images were obtained through the abdomen and pelvis without the use of intravenous contrast. Auto Exposure Controls were utilized during the CT exam to meet ALARA standards for radiation dose reduction. INDICATION: Left lower quadrant pain The previous CT abdomen/pelvis exam of 05/01/2019 suggested postoperative hematoma involving the pelvis. There is no acute abnormality of the kidneys. On this study however there is now obstruction of the left collecting system as the left ureter and left renal pelvis are dilated. It is difficult to identify an obstructive calculus although there is a tiny 1 mm calculus along the path of the distal left ureter (image 101 of 123). There is no solid obstructive mass identified in the region of the distal left ureter. The urinary bladder itself is not well distended and difficult to assess. There is no acute abnormality of the abdomen and pelvis noted otherwise. The lung bases are clear. The bone windows are unremarkable for a fracture or for a destructive process. IMPRESSION: 1. There does appear to be obstruction of the left collecting system as both the left ureter and left renal pelvis are dilated. There may be a minute nonobstructive calculus in the distal left ureter as well. Clinical follow-up is recommended. 2. There is no acute abnormality in the abdomen and pelvis noted otherwise. Dictated by: Dictated on workstation # [id number] Dict: 02/18/21 1033 Trans: 02/18/21 1058 [facility] [id number] Interpreted by: LIAM GUILLEN MD Electronically signed by: LIAM GUILLEN MD 02/18/21 1058 Departure Impression Primary Impression: Left ureteral stone Additional Impressions: Hydronephrosis Qualified Codes: N13.30 - Unspecified hydronephrosis Bladder spasms Disposition: HOME, SELF-CARE Condition: Improved Admissions Decision to Admit Reason: Admit from ER (General) Departure-Patient Inst. Referrals: JULIO GENAO DO (PCP/Family) Primary Care Physician CARLOS LAW MD Patient Instructions: Kidney Stone Diet, Kidney Stone, Adult ED Add. Discharge Instructions: Follow-up with Dr. Law as soon as possible. Use your pain medication and nausea medication as prescribed until then. Also take the antibiotic as prescribed to prevent infection with this ureteral stone. Call with questions or concerns. Return to ER if you have worsening symptoms. Continue to drink plenty of clear liquids. All discharge instructions reviewed with patient and/or family. Voiced understanding. Scripts Tamsulosin HCl (Flomax) 0.4 Mg Cap 0.4 MG PO DAILY, #30 CAP Prov: MICAELA BEJARANO MD 02/18/21 Hyoscyamine Sulfate (Levsin-Sl) 0.125 Mg Tab.subl 1-2 TAB SL Q4H PRN for CRAMPS, #20 TAB 0 Refills Prov: MICAEAL BEJARANO MD 02/18/21 Ciprofloxacin HCl (Ciprofloxacin HCl) 500 Mg Tablet 500 MG PO BID, #14 TAB Prov: MICAELA BEJARANO MD 02/18/21 Ondansetron (Ondansetron Odt) 4 Mg Tab.rapdis 4 MG SL Q4H PRN for NAUSEA/VOMITING, #10 TAB 1 Refill Prov: MICAELA BEJARANO MD 02/18/21 Oxycodone HCl/Acetaminophen (Percocet 5-325 mg Tablet) 1 Each Tablet 1-2 TAB PO Q4H PRN for PAIN-MODERATE (5-7) MDD 6 TABS, #20 TAB Prov: MICAELA BEJARANO MD 02/18/21 Copy Copies To 1: JULIO GENAO DO Copies To 2: CARLOS LAW MD, JOSHUA T MD Feb 18, 2021 12:01
[2021-02-18] MEDS ORDERED: HYOS0.1283 SL (12:06)
[2021-02-18] MEDS ORDERED: CIPR500T5 PO (12:06)
[2021-02-18] MEDS ORDERED: ONDA4TAB11 SL (12:06)
[2021-02-18] MEDS ORDERED: OXYC1TAB87 PO (12:06)
[2021-02-18 12:17] VITALS: BP 114/81
[2021-02-18] MEDS ORDERED: TMSL.4C PO (12:39)
== END 2021-02-18 12:17 | disposition home or self-care (01) ==
LOC: EDUNIT# 09:05 → ER 09:07
DX: N13.2 Hydronephrosis with renal and ureteral calculous obstruction (principal); N32.89 Other specified disorders of bladder; G89.29 Other chronic pain; M54.9 Dorsalgia, unspecified; Z88.5 Allergy status to narcotic agent; Z79.891 Long term (current) use of opiate analgesic
CPT/HCPCS: 36415; 74176; 80053; 81000; 83690; 84703; 85025

== ENCOUNTER → 2021-02-21 | Outpatient (CLI) | payer BC ==
[~2021-02-21] MED LIST changes: +CIPR500T5 PO; +HYOS0.1283 SL; +ONDA4TAB11 SL; +TMSL.4C PO
--- NOTE | 2021-02-21 14:35 | Diagnostic Imaging Report ---
INDICATION: History of ureteral calculus. COMPARISON: CT dated 02/18/2021. FINDINGS: Single supine radiographic view of the abdomen was obtained. Small bowel loops are nondistended. There is no large collection of free intraperitoneal air. Moderate air and stool is noted scattered throughout the colon. No unexpected extraosseous calcifications or radiopaque foreign bodies are seen. Osseous structures show no gross acute abnormalities. IMPRESSION: 1. Nonobstructed small bowel gas pattern. 2. Moderate colonic air and stool. Please correlate for constipation. Dictated by: Dictated on workstation # [id number]
== END ==
LOC: RAD 12:00
PROVIDERS: ATTEND Urology
DX: N20.1 Calculus of ureter (principal)
CPT/HCPCS: 74018